=== PATIENT | male | born 1985 | race Caucasian/White ===

== ENCOUNTER 2025-06-16 16:27 | Emergency (ER) | payer OTHER ==
[~2025-06-16] VITALS: Ht 167.6 cm; Wt 75.0 kg
[2025-06-16 16:38] VITALS: BP 158/107; PULSE 76; O2SAT 99
--- NOTE | 2025-06-16 17:43 | Physician Documentation ---
History of Present Illness ~ Chief Complaint: Rib pain Stated Complaint: RIB PAIN Time Seen by MD: 17:01 Source: patient, family, RN/MD HPI Patient is seen today with complaints of left-sided rib pain stating that he fell off a rock and hit his ribs from the height of about 6 ft about 3-4 weeks ago. Patient denies any shortness of breath. He just states his ribs heard of the left side. He has no other concern or complaint at this time. He denies any abdominal pain or nausea, vomiting, diarrhea or shortness of breath. Allergies: Coded Allergies: Penicillins (Verified Allergy, Unknown, 06/16/25) Active Prescriptions See Medication Reconciliation Form. Review of Systems Constitutional: Denies: chills, fever, weakness Eyes: Denies: pain, blurred vision ENT: Denies: ear pain, nose pain, throat pain, mouth pain Respiratory: Denies: cough, shortness of breath Cardiovascular: Denies: chest pain, palpitations Gastrointestinal: Denies: abdominal pain, nausea, vomiting Genitourinary: Denies: burning, dysuria Male Genitalia: Denies: penile discharge, testicular pain Neurological: Denies: headache, dizziness Musculoskeletal: Denies: pain, swelling Integumentary: Denies: rash, lesions Allergic/Immunologic: Denies: hives, itching Hematologic/Lymphatic: Denies: no symptoms reported Psychiatric: Denies: depression, anxiety Physical Exam Vital Signs: Temperature: 98.1, Source: Temporal, Heart Rate: 76, Respiratory Rate: 16, BP: 158/107, Pulse Oximetry: 99, Weight: 75.000 Oxygen Flow Rate: 0 Physical Exam General: Awake and Alert, no acute distress. HEENT: Conjunctiva pink, Sclera clear, Mucus Membranes moist. Neck: Supple without masses and tenderness. Resp: Unlabored. Lungs clear to auscultation bilaterally. Chest: Patient on exam does have significant tenderness to palpation of the left anterior ribcage laterally. Does have sign of resolving ecchymosis in that area. No significant swelling and no step-off noted. Heart: Regular Rate and rhythm, normal S1 and S2 without murmur, rub or gallop. Abdomen: Soft and non tender no organomegaly Extremities: No cyanosis,clubbing or edema. Skin: Warm and Dry. Progress Results/Orders Results/Orders Orders - ROJAS COVARRUBIASs,Unilat (06/16/25 17:53) Completed Orders - ROJAS COVARRUBIAS PAC Ribs,Unilat (06/16/25 17:53) Ketorolac Trometh 30mg/Ml Vial (Toradol (06/16/25 17:43) Medications Received in ER Medications (Trade) Dose Ordered Sig/Tere Route PRN Reason Start Time Stop Time Status Last Admin Dose Admin (Toradol inj. 30mg/ml) 30 mg ONCE STAT IM 06/16/25 17:43 06/16/25 17:44 DC 06/16/25 18:08 30 MG Vital Signs 06/16/25 06/16/25 16:38 18:08 Temp 98.1 Pulse 76 Resp 16 16 B/P (MAP) 158/107 Pulse Ox 99 O2 Flow Rate 0 Medical Decision Making Findings Patient is seen today with complaints of left-sided rib pain stating that he fell off a rock and hit his ribs from the height of about 6 ft about 3-4 weeks ago. Patient denies any shortness of breath. He just states his ribs heard of the left side. He has no other concern or complaint at this time. He denies any abdominal pain or nausea, vomiting, diarrhea or shortness of breath. Patient did have chest x-ray rib series that showed no acute cardiopulmonary problems but possible 8th rib fracture. Patient did receive Toradol 30 mg IM in the ED today. Prescription of Tylenol and ibuprofen sent to patient's pharmacy for symptomatic pain relief. Return to ED with any worsening, concerning or changing symptoms. Follow up with primary care in 5-10 days if no better as needed sooner. Departure Disposition: HOME / SELF CARE / HOMELESS Impression: Primary Impression: Rib pain Additional Impression: Fracture of rib Qualified Codes: S22.32XA - Fracture of one rib, left side, initial encounter for closed fracture Condition: Stable Discharge Instructions: Rib Fracture Additional Instructions: Patient did have chest x-ray rib series that showed no acute cardiopulmonary problems but possible 8th rib fracture. Patient did receive Toradol 30 mg IM in the ED today. Prescription of Tylenol and ibuprofen sent to patient's pharmacy for symptomatic pain relief. Return to ED with any worsening, concerning or changing symptoms. Follow up with primary care in 5-10 days if no better as needed sooner. Referrals: NO PRIMARY CARE PROVIDER (PCP) Prescriptions Ibuprofen (Ibuprofen) 800 Mg Tablet 1 TAB PO Q8H for pain for 10 Days, #30 TAB 0 Refills Prov: ROJAS COVARRUBIAS 06/16/25 Acetaminophen (Tylenol Extra Strength) 500 Mg Tablet 2 TAB PO Q6H PRN PRN for pain or fever for 7 Days, #56 TAB Prov: ROJAS COVARRUBIAS 06/16/25 Signature Scribe Signature: No scribe Attestation: No scribe ROJAS COVARRUBIAS Jun 16, 2025 17:43
[2025-06-16 18:08] VITALS: RESP 16
[2025-06-16] MEDS: ketorolac trometh 30MG/ML vial 30 MG/ML VIAL IM STA (18:08)
--- NOTE | 2025-06-16 18:14 | RADIOLOGY REPORT ---
CHEST RADIOGRAPH Indication: left rib pain laterally Technique: Single frontal view of the chest WITH 6 VIEWS OF THE LEFT RIBS AVAILABLE FOR EVALUATION. Comparison: None FINDINGS: Lines and Tubes: None Lungs: No focal consolidation. Pleura: No effusion. No pneumothorax. Cardiomediastinal contours: Unremarkable Bones: No acute osseous abnormality. Questionable left anterior 8th rib fracture. IMPRESSION: No acute cardiopulmonary disease. Questionable left anterior 8th rib fracture of unknown chronicity. Recommend correlation with point tenderness to exclude an Acute fracture
[2025-06-16] MEDS ORDERED: ACET-1025 PO (18:53)
[2025-06-16] MEDS ORDERED: IBUP-1986 PO (18:53)
[2025-06-16 18:55] VITALS: TEMP 98.1
== END 2025-06-16 18:59 | disposition home or self-care (01) ==
LOC: ER 16:28
DX: S22.32XA Fracture of one rib, left side, initial encounter for closed fracture (principal); Z88.0 Allergy status to penicillin; W17.89XA Other fall from one level to another, initial encounter; Y93.89 Activity, other specified; Y92.89 Other specified places as the place of occurrence of the external cause; Y99.8 Other external cause status
CPT/HCPCS: 71100; 96372; 99283; J1885